=== PATIENT | male | born 1965 | race Caucasian/White ===

== ENCOUNTER 2017-04-13 17:10 | Observation (INO) | payer MEDICAID ==
[~2017-04-13] VITALS: Ht 175.3 cm; Wt 78.0 kg
[~2017-04-13 17:10] MED LIST: DIPH1TAB PO; DIVA500T4 PO; LISI-167 PO; LOPE1TAB4 PO; METO10TA82 PO; ONDA4TAB10 PO; OXYC5TAB3 PO; PANT40TA3 PO; PRED50TA PO; RISP1TAB45 PO; SERT25TA PO
[2017-04-13 18:29] LABS: HEMOGLOBIN 14.8 g/dL (13.7-18.0)
[2017-04-13 18:38] LABS: ASPARTATE AMINO TRANSFERASE 12 U/L (15-37); BLOOD UREA NITROGEN 12 mg/dL (7-18)
[2017-04-13 18:42] LABS: ACETAMINOPHEN < 2 mcg/mL (10-30)
[2017-04-13 18:45] LABS: DAU SCREEN DISCLAIMER
[2017-04-13] MEDS ORDERED: SERT50TA PO (18:52)
[2017-04-13] MEDS ORDERED: CEPH-368 PO (18:52)
[2017-04-13] MEDS ORDERED: CEPHALEXIN 500 MG CAPSULE PO ONE (19:00)
[2017-04-13] MEDS ORDERED: ONDANSETRON ODT 4 MG PO PRN (20:30)
[2017-04-13] MEDS ORDERED: ACETAMINOPHEN 325 MG TABLET PO PRN (20:30)
[2017-04-13] MEDS: CEPHALEXIN 500 MG CAPSULE PO SCH (21:00)
[2017-04-13 21:18] VITALS: BP 144/91
[2017-04-13] MEDS: LORazepam 1MG TABLET PO PRN (21:51)
[2017-04-14 07:45] VITALS: BP 120/76
[2017-04-14] MEDS: SERTRALINE 50MG TABLET PO SCH (09:19)
[2017-04-14] MEDS: BACLOFEN 10 MG TABLET PO SCH ×3 (09:19→20:21)
[2017-04-14] MEDS: CEPHALEXIN 500 MG CAPSULE PO SCH ×3 (09:19→20:22)
[2017-04-14] MEDS: LORazepam 1MG TABLET PO PRN ×2 (09:29→17:28)
[2017-04-14 16:18] VITALS: BP 131/81
[2017-04-14 19:10] VITALS: BP 122/77
[2017-04-15 07:55] VITALS: BP 123/82
[2017-04-15] MEDS: SERTRALINE 50MG TABLET PO SCH (07:56)
[2017-04-15] MEDS: BACLOFEN 10 MG TABLET PO SCH ×3 (07:56→19:33)
[2017-04-15] MEDS: CEPHALEXIN 500 MG CAPSULE PO SCH ×3 (07:56→19:33)
[2017-04-15] MEDS: LORazepam 1MG TABLET PO PRN ×4 (08:02→19:33)
[2017-04-15 12:25] VITALS: BP 125/83
[2017-04-15 16:16] VITALS: BP 127/83
[2017-04-15 19:17] VITALS: BP 128/86
[2017-04-16 07:55] VITALS: BP 133/83
[2017-04-16] MEDS: SERTRALINE 50MG TABLET PO SCH (08:01)
[2017-04-16] MEDS: CEPHALEXIN 500 MG CAPSULE PO SCH ×2 (08:01→16:28)
[2017-04-16] MEDS: BACLOFEN 10 MG TABLET PO SCH ×2 (08:01→16:27)
[2017-04-16] MEDS: LORazepam 1MG TABLET PO PRN ×3 (08:12→19:49)
[2017-04-16 14:43] VITALS: BP 128/64
[2017-04-16 19:21] VITALS: BP 120/77
[2017-04-16 23:12] VITALS: BP 129/79
[2017-04-17] MEDS: BACLOFEN 10 MG TABLET PO SCH ×4 (00:13→23:55)
[2017-04-17] MEDS: LORazepam 1MG TABLET PO PRN ×4 (00:13→19:42)
[2017-04-17] MEDS: CEPHALEXIN 500 MG CAPSULE PO SCH ×4 (00:13→23:55)
[2017-04-17 07:40] VITALS: BP 132/80
[2017-04-17] MEDS: SERTRALINE 50MG TABLET PO SCH (08:25)
[2017-04-17 19:14] VITALS: BP 121/71
[2017-04-17 23:57] VITALS: BP 126/78
[2017-04-18 08:52] VITALS: BP 121/85
[2017-04-18] MEDS: CEPHALEXIN 500 MG CAPSULE PO SCH ×3 (09:04→20:46)
[2017-04-18] MEDS: BACLOFEN 10 MG TABLET PO SCH ×3 (09:04→20:46)
[2017-04-18] MEDS: SERTRALINE 50MG TABLET PO SCH (09:04)
[2017-04-18] MEDS: LORazepam 1MG TABLET PO PRN ×3 (15:10→20:50)
[2017-04-18 20:00] VITALS: BP 105/67
[2017-04-19] MEDS: LORazepam 1MG TABLET PO PRN ×3 (06:39→16:00)
[2017-04-19 08:43] VITALS: BP 119/74
[2017-04-19] MEDS: BACLOFEN 10 MG TABLET PO SCH ×2 (09:07→15:47)
[2017-04-19] MEDS: CEPHALEXIN 500 MG CAPSULE PO SCH ×2 (09:07→15:47)
[2017-04-19] MEDS: SERTRALINE 50MG TABLET PO SCH (09:07)
== END 2017-04-19 16:08 ==
LOC: ED 20:36 → EDIP 20:40 → INTOOBSV 20:40 → 3E 21:11
PROVIDERS: ADMIT Family Medicine; ATTEND Family Medicine
DX: R45.851 Suicidal ideations (principal); F32.9 Major depressive disorder, single episode, unspecified; F10.239 Alcohol dependence with withdrawal, unspecified; R60.0 Localized edema; K21.9 Gastro-esophageal reflux disease without esophagitis; L97.929 Non-pressure chronic ulcer of unspecified part of left lower leg with unspecified severity; Z59.0 Homelessness
CPT/HCPCS: 36415; 80053; 80307; 80329; 85025; 99285; G0378; Q0162; G0479; G0480

== ENCOUNTER 2017-04-26 15:45 | Emergency (ER) | payer MEDICAID ==
[~2017-04-26] VITALS: Ht 177.8 cm; Wt 76.1 kg
[~2017-04-26 15:45] MED LIST changes: +CEPH-368 PO; +SERT50TA PO
[2017-04-26 15:46] VITALS: BP 122/83
[2017-04-26 16:55] LABS: HEMATOCRIT 46.5 % (39.2-51.8); HEMOGLOBIN 15.6 g/dL (13.7-18.0); WHITE BLOOD COUNT 9.8 x10^3/uL (3.4-10)
[2017-04-26 17:05] LABS: ASPARTATE AMINO TRANSFERASE 18 U/L (15-37); BLOOD UREA NITROGEN 20 mg/dL (7-18)
[2017-04-26] MEDS ORDERED: BACITRACIN ZINC OINT 500U/GM, 0.9 GM ONE (18:39)
[2017-04-27] MEDS ORDERED: TRAZ100T15 PO (19:06)
[2017-04-27] MEDS ORDERED: IBUP-11 PO (19:07)
[2017-04-27] MEDS ORDERED: DEXT10TA7 PO (19:08)
== END 2017-04-26 18:45 | disposition home or self-care (01) ==
LOC: ED 18:05
DX: S90.811A Abrasion, right foot, initial encounter (principal); K21.9 Gastro-esophageal reflux disease without esophagitis; X58.XXXA Exposure to other specified factors, initial encounter; Y93.89 Activity, other specified; Y99.8 Other external cause status; Y92.89 Other specified places as the place of occurrence of the external cause
CPT/HCPCS: 36415; 80053; 85025; 99285

== ENCOUNTER 2017-04-27 19:01 | Observation (INO) | payer MEDICAID ==
[~2017-04-27] VITALS: Ht 175.3 cm; Wt 80.0 kg
[2017-04-27] MEDS ORDERED: TRAZ100T15 PO (19:06)
[2017-04-27] MEDS ORDERED: IBUP-11 PO (19:07)
[2017-04-27] MEDS ORDERED: DEXT10TA7 PO (19:08)
[2017-04-27 19:36] LABS: HEMATOCRIT 43.3 % (39.2-51.8); HEMOGLOBIN 14.7 g/dL (13.7-18.0); WHITE BLOOD COUNT 12.4 x10^3/uL (3.4-10)
[2017-04-27 19:42] LABS: BLOOD UREA NITROGEN 22 mg/dL (7-18)
[2017-04-27 19:44] LABS: ACETAMINOPHEN < 2 mcg/mL (10-30)
[2017-04-27] MEDS ORDERED: ONDANSETRON ODT 4 MG PO PRN (20:30)
[2017-04-27] MEDS ORDERED: DIPHENHYDRAMINE 50 MG CAPSULE PO PRN (20:30)
[2017-04-27] MEDS ORDERED: ZIPRASIDONE 20 MG INJ IM PRN (20:30)
[2017-04-27 22:56] VITALS: BP 108/72
[2017-04-27 23:43] LABS: DAU SCREEN DISCLAIMER
[2017-04-28 08:00] VITALS: BP 117/88
[2017-04-28] MEDS ORDERED: ADDERALL 10 MG HOMEMEDPO SCH (09:00)
[2017-04-28] MEDS: SERTRALINE 50MG TABLET PO SCH (09:06)
[2017-04-28] MEDS: QUETIAPINE 25MG TABLET PO SCH ×2 (12:15→20:18)
[2017-04-28 19:40] VITALS: BP 121/72
[2017-04-28] MEDS: TRAZODONE 100MG TABLET PO SCH ×2 (20:18→21:04)
[2017-04-28] MEDS: ACETAMINOPHEN 325 MG TABLET PO PRN (20:19)
[2017-04-29] MEDS: SERTRALINE 50MG TABLET PO SCH (08:32)
[2017-04-29] MEDS: QUETIAPINE 25MG TABLET PO SCH ×2 (08:33→20:11)
[2017-04-29 08:49] VITALS: BP 116/76
[2017-04-29] MEDS: LORazepam 0.5MG TABLET PO PRN ×2 (09:39→17:42)
[2017-04-29] MEDS: ACETAMINOPHEN 325 MG TABLET PO PRN (17:49)
[2017-04-29 19:25] VITALS: BP 119/76
[2017-04-29] MEDS: TRAZODONE 100MG TABLET PO SCH (20:11)
[2017-04-30] MEDS: SERTRALINE 50MG TABLET PO SCH (08:20)
[2017-04-30] MEDS: LORazepam 0.5MG TABLET PO PRN ×2 (08:26→18:02)
[2017-04-30] MEDS: QUETIAPINE 25MG TABLET PO SCH ×2 (08:28→20:08)
[2017-04-30 08:32] VITALS: BP 108/73
[2017-04-30] MEDS: LORATADINE 10 MG TABLET PO PRN (11:44)
[2017-04-30] MEDS: HYDROCORTISONE CRM 1%, 30GM TP PRN (11:44)
[2017-04-30 19:57] VITALS: BP 122/80
[2017-04-30] MEDS: ACETAMINOPHEN 325 MG TABLET PO PRN (20:07)
[2017-04-30] MEDS: TRAZODONE 100MG TABLET PO SCH (20:08)
[2017-05-01] MEDS: QUETIAPINE 25MG TABLET PO SCH ×2 (07:00→20:22)
[2017-05-01] MEDS: LORATADINE 10 MG TABLET PO PRN (08:00)
[2017-05-01] MEDS: SERTRALINE 50MG TABLET PO SCH (08:00)
[2017-05-01] MEDS: HYDROCORTISONE CRM 1%, 30GM TP PRN (08:01)
[2017-05-01] MEDS: LORazepam 0.5MG TABLET PO PRN ×2 (08:05→17:13)
[2017-05-01] MEDS: ACETAMINOPHEN 325 MG TABLET PO PRN (08:05)
[2017-05-01 08:25] VITALS: BP 104/62
[2017-05-01 20:00] VITALS: BP 118/77
[2017-05-01] MEDS: TRAZODONE 100MG TABLET PO SCH (20:22)
[2017-05-02 07:25] VITALS: BP 111/76
[2017-05-02] MEDS ORDERED: SERTRALINE 100MG TABLET ONE (08:06)
[2017-05-02] MEDS: QUETIAPINE 25MG TABLET PO SCH ×2 (08:38→20:19)
[2017-05-02] MEDS: SERTRALINE 50MG TABLET PO SCH (08:39)
[2017-05-02] MEDS: LORATADINE 10 MG TABLET PO PRN (09:00)
[2017-05-02] MEDS: HYDROCORTISONE CRM 1%, 30GM TP PRN (10:16)
[2017-05-02] MEDS: LORazepam 0.5MG TABLET PO PRN (16:56)
[2017-05-02 19:25] VITALS: BP 116/72
[2017-05-02] MEDS: TRAZODONE 100MG TABLET PO SCH (20:18)
[2017-05-03] MEDS ORDERED: SERTRALINE 100MG TABLET ONE (07:50)
[2017-05-03 08:00] VITALS: BP 122/75
[2017-05-03] MEDS: LORATADINE 10 MG TABLET PO PRN (08:26)
[2017-05-03] MEDS: LORazepam 0.5MG TABLET PO PRN (08:26)
[2017-05-03] MEDS: SERTRALINE 50MG TABLET PO SCH (08:28)
[2017-05-03] MEDS: QUETIAPINE 25MG TABLET PO SCH (08:29)
[2017-05-03] MEDS ORDERED: TRAZ100T15 PO (12:00)
[2017-05-03] MEDS ORDERED: SERT50TA PO (12:00)
== END 2017-05-03 12:53 | disposition home or self-care (01) ==
LOC: ED 19:11 → EDIP 20:11 → INTOOBSV 20:11 → 3E 22:13
PROVIDERS: ADMIT Family Medicine; ATTEND Family Medicine
DX: R45.851 Suicidal ideations (principal); F32.9 Major depressive disorder, single episode, unspecified; K21.9 Gastro-esophageal reflux disease without esophagitis; K50.90 Crohn's disease, unspecified, without complications; Z72.89 Other problems related to lifestyle; Z59.0 Homelessness; Z91.5 Personal history of self-harm
CPT/HCPCS: 36415; 80048; 80307; 80329; 82040; 85025; 96372; 99285; G0378; J3486; G0479; G0480